=== PATIENT | female | born 1990 ===

== ENCOUNTER → 2025-09-02 | Day surgery (SDC) | payer OTHER ==
[2025-08-28 14:31] VITALS: BP 91/61
[~2025-09-02] MED LIST: ADDERALL 15 MG15 MG PO; CHLORHEXIDINE GLUCONATE 120 ML BOTTLE TOP ONE; DOXYCYCLINE IR-40 MG PO; POVIDONE-IODINE 118 ML BOTT TOP ONE
== END | disposition home or self-care (01) ==
LOC: ADM 08-28 11:45 → CIR.AMB 06:00
PROVIDERS: ATTEND Obstetrics & Gynecology Maternal & Fetal Medicine
DX: N84.0 Polyp of corpus uteri (principal)